=== PATIENT | female | born 1985 | race Caucasian/White ===

== ENCOUNTER → 2022-08-05 | Outpatient (CLI) | payer SELFPAY ==
[2022-08-05 15:02] LABS: Hemoglobin A1c 5.3 % (3.8-5.6)
[2022-08-05 15:19] LABS: Progesterone Level 9.93 ng/mL (See Comment)
[2022-08-05 16:04] LABS: Estradiol 77.3 pg/mL; Follicle Stimulating Hormone 6.3 mIU/mL; Luteinizing Hormone 9.1 mIU/mL; Thyroid Stim Hormone (TSH) 0.92 uIU/mL (0.358-3.74)
[2022-08-08 02:07] LABS: Anti-Cardiolipin Ab, IgG, Qn < 9 GPL U/mL (0-14); Anti-Cardiolipin Ab, IgM, Qn < 9 MPL U/mL (0-12); Dilute Prothrombin Time (dPT) 39.4 sec (0.0-47.6); Dilute Russell Viper Venom 31.7 sec (0.0-47.0); Interpretation Comment: (.); PTT-LA 33.9 sec (0.0-43.5); Thrombin Time 18.9 sec (0.0-23.0); dPT Confirm Ratio 1.08 Ratio (0.00-1.34)
[2022-08-08 07:08] LABS: Beta-2-Microglobulin, S 0.9 mg/L (0.6-2.4)
== END | disposition home or self-care (01) ==
LOC: WOBLAB 14:28
PROVIDERS: Visit Provider Student in an Organized Health Care Education/Training Program
DX: N96 Recurrent pregnancy loss (principal)
CPT/HCPCS: 36415; 82232; 82670; 83001; 83002; 83036; 84144; 84443; 86147